=== PATIENT | male | born 1980 | race African-American/Black ===

== ENCOUNTER 2020-04-26 17:16 | Emergency (ER) | payer BC ==
[~2020-04-26] VITALS: Ht 177.8 cm; Wt 84.1 kg
[~2020-04-26 17:16] MED LIST: CEPHALEXIN500 M1 PO; HCTZ 25MG TAB25 MG PO; NO HOME MEDICATIONS; NORVASC2.5 MG PO; PERCOCET 325 MG1 TA2 PO
[2020-04-26 17:27] VITALS: TEMP 97
[2020-04-26 17:56] LABS: ALANINE AMINOTRANSFERASE 38 U/L (4-49); ALBUMIN 4.7 gm/dL (3.5-5.0); ALKALINE PHOSPHATASE 62 U/L (50-136); ANION GAP 12 mmol/L (7-16); AST,SGOT 36 U/L (15-37); BILIRUBIN,TOTAL 0.7 mg/dL (0.0-1.0); BLOOD UREA NITROGEN 15 mg/dL (9-20); CALCIUM 9.7 mg/dL (8.4-10.2); CARBON DIOXIDE 22 mmol/L (22-30); CHLORIDE 101 mmol/L (98-107); CREATININE, serum 1.03 (0.66-1.25); GLUCOSE 110 mg/dL (74-106); LIPASE 92 U/L (23-300); POTASSIUM 3.4 mmol/L (3.4-5.0); SODIUM 135 mmol/L (137-145); TOTAL PROTEIN 8.1 gm/dL (6.4-8.2)
[2020-04-26 17:58] LABS: BASO # 0.1 (0.0-0.2); C-REACTIVE PROTEIN < 0.5 mg/dL (0.0-0.9); EOS # 0.2 (0.0-0.7); EOS % 2.6 % (0-4.0); GRAN # 2.1 (1.4-6.5); GRAN % 35.1 % (42.2-75.2); HEMATOCRIT 43.7 % (42.0-52.0); HEMOGLOBIN 14.9 g/dl (13.5-18.0); LYMPH # 2.9 (1.2-3.4); LYMPH % 49.9 % (20.0-51.0); MEAN CELL VOLUME 96 fl (80.0-100.0); MEAN CORPUSCULAR HEMOGLOBIN 33 pg (27.0-31.0); MEAN CORPUSCULAR HGB CONC 34 g/dl (33.0-37.0); MEAN PLATELET VOLUME 11.1 fl (7.4-10.4); MONO # 0.7 (0.1-0.6); MONO % 11.1 % (1.7-9.3); PLATELET COUNT 342 K/mm3 (130-400); RED BLOOD COUNT 4.57 M/mm3 (4.20-5.60)
[2020-04-26] MEDS ORDERED: CARAFATE 1GM1 G PO (20:30)
[2020-04-26 21:35] VITALS: BP 180/133; PULSE 78
== END 2020-04-26 21:35 | disposition home or self-care (01) ==
LOC: COL.ER 17:16
PROVIDERS: Physician Assistant
DX: K52.9 Noninfective gastroenteritis and colitis, unspecified (principal); F17.210 Nicotine dependence, cigarettes, uncomplicated
CPT/HCPCS: J1170; J2405; J2550; J7030; Q9967

== ENCOUNTER 2022-05-03 04:19 | Observation (INO) | payer BC ==
[2022-05-03] VITALS (10 sets, daily range): BP systolic 129–154; BP diastolic 80–108; PULSE 72–94; TEMP 98.2–98.6
[~2022-05-03] VITALS: Ht 177.8 cm; Wt 85.0 kg
[~2022-05-03 04:19] MED LIST changes: +CARAFATE 1GM1 G PO; +MOTRIN 600600 MG/TAB PO; +NORCO 325 MG-51 TAB PO
[2022-05-03 04:46] LABS: BASO % 0.4 % (0.0-2.0); EOS # 0.1 K/mm3 (0.0-0.7); EOS % 1.6 % (0.0-4.0); GRAN # 5.2 K/mm3 (1.4-6.5); GRAN % 73.8 % (42.2-75.2); HEMATOCRIT 43.3 % (42.0-52.0); HEMOGLOBIN 14.1 g/dl (13.5-18.0); LYMPH # 1.3 K/mm3 (1.2-3.4); LYMPH % 18.5 % (20.0-51.0); MEAN CELL VOLUME 99 fl (80.0-100.0); MEAN CORPUSCULAR HEMOGLOBIN 32 pg (27-31); MEAN CORPUSCULAR HGB CONC 33 g/dl (33.0-37.0); MEAN PLATELET VOLUME 12.9 fl (7.4-10.4); MONO # 0.4 K/mm3 (0.1-0.6); MONO % 5.4 % (1.7-9.3); PLATELET COUNT 175 K/mm3 (130-400); RED BLOOD COUNT 4.38 M/mm3 (4.20-5.60)
[2022-05-03 04:58] LABS: ALBUMIN 3.7 gm/dL (3.5-5.0); BILIRUBIN,TOTAL 0.8 mg/dL (0.2-1.2); CALCIUM 9.6 mg/dL (8.4-10.2); CREATININE, serum 0.98 mg/dL (0.72-1.25); POTASSIUM 3.6 mmol/L (3.5-4.5); TOTAL PROTEIN 7.6 gm/dL (6.2-8.1)
[2022-05-03 05:04] LABS: TROPONIN-I 0.027 ng/mL (0.00-0.033)
[2022-05-03 12:00] LABS: HEMATOCRIT 42.5 % (42.0-52.0); HEMOGLOBIN 14.5 g/dl (13.5-18.0); MEAN CELL VOLUME 97 fl (80.0-100.0); MEAN CORPUSCULAR HEMOGLOBIN 33 pg (27-31); MEAN CORPUSCULAR HGB CONC 34 g/dl (33.0-37.0); MEAN PLATELET VOLUME 10.9 fl (7.4-10.4); RED BLOOD COUNT 4.39 M/mm3 (4.20-5.60); REDCELL DISTRIBUTION WIDTH-CV 13.8 % (11.5-14.5)
[2022-05-03 12:05] LABS: INR 1.1 (0.8-3.0); PROTHROMBIN TIME 13.1 SECONDS (9.7-12.8)
[2022-05-03 12:06] LABS: PLATELET COUNT 355 K/mm3 (130-400)
[2022-05-03 12:07] LABS: PARTIAL THROMBOPLASTIN TIME 29.2 SECONDS (26.0-37.0)
[2022-05-03 12:12] LABS: CALCIUM 9.8 mg/dL (8.4-10.2); CREATININE, serum 1.05 mg/dL (0.72-1.25); POTASSIUM 3.7 mmol/L (3.5-4.5)
--- NOTE | 2022-05-03 12:44 | NUR ---
SEE MERGE FOR ALL MEDICATION ADMINISTRATIONS, INTERVENTIONS, VITALS AND ETCO2
[2022-05-03 13:11] LABS: TRICYCLIC ANTIDEPRESS URINE NEGATIVE
--- NOTE | 2022-05-03 17:51 | NUR ---
PT RECOVERED FROM HEART CATH AT NOON TODAY. TR BAND RELEASED ORDERED, NO BLEEDING AT THIS TIME. PT EDUCATED TO NOT DROP HAMMER MECHANIC HEAVY ITEMS WITH HIS RIGHT ARM R/T EXIT SITE OF HEART CATH. HE VERBALZIED UNDERSTANDING.
--- NOTE | 2022-05-04 01:09 | NUR ---
Shift assessment done at 2029. Pt is A&O x4. Visitor at bedside at the time of assessment. R radial bandaid is CDI. No complains of chest pain, SOB, n/v, headache. LAC INT is CDI. Tele on. No needs or concerns expressed at this moment. Belongings and call light are within reach.
[2022-05-04 03:40] VITALS: BP 130/94; PULSE 69; TEMP 98.6
[2022-05-04 06:58] LABS: BASO % 1.2 % (0.0-2.0); EOS # 0.1 K/mm3 (0.0-0.7); EOS % 3.9 % (0.0-4.0); GRAN # 1.5 K/mm3 (1.4-6.5); GRAN % 45.6 % (42.2-75.2); HEMATOCRIT 44.5 % (42.0-52.0); HEMOGLOBIN 15.3 g/dl (13.5-18.0); LYMPH # 1.2 K/mm3 (1.2-3.4); LYMPH % 37.2 % (20.0-51.0); MEAN CELL VOLUME 94 fl (80.0-100.0); MEAN CORPUSCULAR HEMOGLOBIN 32 pg (27-31); MEAN CORPUSCULAR HGB CONC 34 g/dl (33.0-37.0); MEAN PLATELET VOLUME 10.8 fl (7.4-10.4); MONO # 0.4 K/mm3 (0.1-0.6); MONO % 11.8 % (1.7-9.3); PLATELET COUNT 347 K/mm3 (130-400); RED BLOOD COUNT 4.73 M/mm3 (4.20-5.60); REDCELL DISTRIBUTION WIDTH-CV 13.5 % (11.5-14.5)
[2022-05-04 07:06] VITALS: BP 128/97; PULSE 84; TEMP 97.6
[2022-05-04 07:21] LABS: CALCIUM 9.7 mg/dL (8.4-10.2); CREATININE, serum 1.01 mg/dL (0.72-1.25); MAGNESIUM 1.7 mg/dL (1.6-2.6); POTASSIUM 3.5 mmol/L (3.5-4.5)
--- NOTE | 2022-05-04 10:04 | NUR ---
Initial visit; Patient thanked Switch House Operator for stopping, though he was using the telephone. Switch House Operator offered God's blessings and a get well message and mentioned that he may contact Switch House Operator anytime if he would like another visit.
--- NOTE | 2022-05-04 10:43 | NUR ---
PT EDUCATED EARLY THIS AM ABOUT DIETARY CHANGES TO HELP WITH HIS HEART. PT VERBALIZED UNDERSTANDING BUT C/O NO WILL POWER. ENCOURAGED PATIENT TO MAKE SMALL CHANGES OVER TIME TO IMPROVE HIS HEALTH.
[2022-05-04 11:02] VITALS: BP 116/91; PULSE 86; TEMP 97.6
--- NOTE | 2022-05-04 13:22 | NUR ---
Reviewed education for chronic heart failure. Reviewed [facility] CHF educational booklet, with emphasis on daily weights, obtaining dry weights, monitoring for edema, shortness of breath, decreased endurance, or feeling full when eating less. Reviewed importance of medication compliance with all prescribed medications and when to call your medical provider (CHF Zones). Patient verbalized understanding. Patient's EF was 15-20% on 05/03/22 which does qualify for Cardiac Rehab. Referral to Cardiac Rehab would be welcomed by provider once the patient obtains a regular physician. Thank you.
[2022-05-04 15:32] VITALS: BP 111/75; PULSE 74; TEMP 97.8
--- NOTE | 2022-05-04 17:43 | NUR ---
PT IS ALERT AND ANSWERING QUESTIONS WITHOUT PROBLEM. RESP INCREASED TO 24, FENTANYL IV GIVEN ORDERED. WITHIN 10 MINUTES RESP ARE NOW 18.
[2022-05-04 20:02] VITALS: BP 122/97; PULSE 76; TEMP 97.8
--- NOTE | 2022-05-04 23:18 | NUR ---
Scheduled medications given. Shift assessment performed. VSS. Patient A&O. Patient denies any, discomfort, SOA, or further needs at this time. Call light in reach.
[2022-05-04 23:58] VITALS: BP 122/82; PULSE 65; TEMP 97.7
[2022-05-05 03:22] VITALS: BP 125/85; PULSE 68; TEMP 97.9
[2022-05-05 04:14] VITALS: BP 124/87; PULSE 70
[2022-05-05 04:46] LABS: EOS # 0.1 K/mm3 (0.0-0.7); EOS % 2.1 % (0.0-4.0); GRAN # 1.8 K/mm3 (1.4-6.5); GRAN % 41.8 % (42.2-75.2); HEMATOCRIT 47.5 % (42.0-52.0); HEMOGLOBIN 15.7 g/dl (13.5-18.0); LYMPH # 1.8 K/mm3 (1.2-3.4); LYMPH % 41.7 % (20.0-51.0); MEAN CELL VOLUME 97 fl (80.0-100.0); MEAN CORPUSCULAR HEMOGLOBIN 32 pg (27-31); MEAN CORPUSCULAR HGB CONC 33 g/dl (33.0-37.0); MEAN PLATELET VOLUME 11.5 fl (7.4-10.4); MONO # 0.5 K/mm3 (0.1-0.6); MONO % 12.9 % (1.7-9.3); PLATELET COUNT 317 K/mm3 (130-400); RED BLOOD COUNT 4.89 M/mm3 (4.20-5.60); REDCELL DISTRIBUTION WIDTH-CV 13.4 % (11.5-14.5)
--- NOTE | 2022-05-05 04:53 | NUR ---
Tele informed this RN that patient had a 7-8 sec run of VTACH. Stat EKG ordered per protocol. Vital signs taken, VSS. Patient did report a short "burst" of SOB that has since resolved. No chest pain reported. JAJA Waddell notified of patient status and subsequent orders were placed. wetlands technician called to draw STAT labs. Tray notified of developments. No further orders recieved.
[2022-05-05 05:06] LABS: CALCIUM 9.2 mg/dL (8.4-10.2); CHOLESTEROL RISK RATIO 3.1; CREATININE, serum 0.91 mg/dL (0.72-1.25); MAGNESIUM 1.7 mg/dL (1.6-2.6); POTASSIUM 3.9 mmol/L (3.5-4.5)
[2022-05-05 07:27] VITALS: BP 129/96; PULSE 75; TEMP 97.6
--- NOTE | 2022-05-05 08:00 | NUR ---
Patient is resting in bed, alert and oriented x 4, denies any shortness of breath or discomfort at this time. VSS, cooperative expecting to leave today.
[2022-05-05 11:22] VITALS: BP 119/92; PULSE 76; TEMP 97.9
--- NOTE | 2022-05-05 11:26 | NUR ---
(LATE ENTRY from 05/03) Patient seen at bedside to complete intake and discuss discharge justin. Patient reports that he lives at home alone in [place]. He is fully independent with his ADL's and IADL's. He has no DME or home oxygen needs. Patient does not have a PCP. States he used to see Dr. Sneed but was discharged as a patient due to missed appointments. Patient utilizes [facility] for prescriptions. Patient does not have a DPOA-HC and does not wish to create one. His emergency contact, Liza ([phone]) is his ex and together they share children and remain close friends. Patient is planning on returning home once medically ready. Discharge plan: home
[2022-05-05] MEDS ORDERED: LIPITOR 10MG10 MG PO (12:33)
[2022-05-05] MEDS ORDERED: TOPROL XL 50MG50 MG PO (12:33)
[2022-05-05] MEDS ORDERED: ALDACTONE 25MG25 M1 PO (12:34)
[2022-05-05] MEDS ORDERED: ENTRESTO 24 MG1 EACH PO (12:34)
[2022-05-05] MEDS ORDERED: LASIX 20MG TABL20 MG PO (12:34)
[2022-05-05] MEDS ORDERED: JARDIANCE10 PO (12:34)
[2022-05-05 15:35] VITALS: BP 112/82; PULSE 81; TEMP 97.7
--- NOTE | 2022-05-05 15:39 | NUR ---
brokerage purchase and sale clerk set up patient with Dr. Winters at [facility] for primary care. Market Research Assistant collaborated with Cardiology to obtain a Life Vest for patient. LUNA faxed clinicals, order sheet, and letter of medical necessity to Jonny at [facility]. Jonny submitted everything and is waiting on insurance authorization. Jonny will continue to work on securing the vest for patient. Vest will be available tonight vs tomorrow morning. LUNA updated Hospitalist and Physical Therapist Assistant.
--- NOTE | 2022-05-05 19:04 | NUR ---
Patient has been stable along the day, no complains of SOB, chest pain. Report given to welder 2nd shift nurse.
[2022-05-05 19:20] VITALS: BP 121/94; PULSE 74; TEMP 98
[2022-05-06 00:03] VITALS: BP 133/96; PULSE 74; TEMP 98.1
[2022-05-06 03:43] VITALS: BP 121/91; PULSE 68; TEMP 98.2
--- NOTE | 2022-05-06 07:02 | NUR ---
PT HAD UNEVENTFUL NIGHT. SLEPT THROUGH THE NIGHT, REPORT GIVEN TO GAGE COMBS.
[2022-05-06 08:20] VITALS: BP 118/83; PULSE 67; TEMP 97.8
--- NOTE | 2022-05-06 11:35 | NUR ---
Assessment complete. A&Ox4. Denies pain/nausea/shortness of breath. VS stable. Plan of care discussed for this shift to include meds/life vest/than DC home. Verbalizes understanding/denies questions/concerns. Call light in reach. Will monitor.
[2022-05-06 12:59] VITALS: BP 122/94; PULSE 79; TEMP 97.8
--- NOTE | 2022-05-06 13:15 | NUR ---
Life vest to be delivered to patient's room at 1600. SW notified RN and Hospitalist.
--- NOTE | 2022-05-06 15:35 | NUR ---
Lifevest staff here at this time.
--- NOTE | 2022-05-06 16:20 | NUR ---
Discharge instructions given both verbal and handwritten. Discussed f/u appt/home medications/diet/signs and symptoms to return to hospital. Verbalizes understanding. INT DCd to left AC-cath intact. Denies questions/concerns. Escorted off floor with PCT in stable condition.
== END 2022-05-06 16:45 | disposition home or self-care (01) ==
LOC: COL.ER 04:19 → MEDICAL 08:15
PROVIDERS: Personal Emergency Response Attendant; Physician Assistant; ADMIT Student in an Organized Health Care Education/Training Program
DX: I11.0 Hypertensive heart disease with heart failure (principal); I50.23 Acute on chronic systolic (congestive) heart failure; I42.8 Other cardiomyopathies; R06.02 Shortness of breath; T46.1X6A Underdosing of calcium-channel blockers, initial encounter; Z91.128 Patient's intentional underdosing of medication regimen for other reason; Y92.9 Unspecified place or not applicable; F12.90 Cannabis use, unspecified, uncomplicated; I08.1 Rheumatic disorders of both mitral and tricuspid valves; E78.5 Hyperlipidemia, unspecified; F17.210 Nicotine dependence, cigarettes, uncomplicated; R91.1 Solitary pulmonary nodule; Z28.310 Unvaccinated for COVID-19; Z28.9 Immunization not carried out for unspecified reason
CPT/HCPCS: A9270; C1769; C1887; G0378; J1644; J1650; J1940; J2250; J3010; J3475; Q9967

== ENCOUNTER 2023-01-22 15:13 | Observation (INO) | payer BC ==
[~2023-01-22] VITALS: Ht 180.3 cm; Wt 84.5 kg
[~2023-01-22 15:13] MED LIST changes: +ALDACTONE 25MG25 M1 PO; +ENTRESTO 24 MG1 EACH PO; +JARDIANCE10 PO; +LASIX 20MG TABL20 MG PO; +LIPITOR 10MG10 MG PO; +TOPROL XL 50MG50 MG PO
[2023-01-22 15:39] LABS: BASO # 0.1 K/mm3 (0.0-0.2); BASO % 0.9 % (0.0-2.0); EOS # 0.1 K/mm3 (0.0-0.7); EOS % 1.6 % (0.0-4.0); GRAN # 3.4 K/mm3 (1.4-6.5); GRAN % 53.3 % (42.2-75.2); HEMATOCRIT 48.7 % (42.0-52.0); HEMOGLOBIN 16.3 g/dl (13.5-18.0); LYMPH # 2.4 K/mm3 (1.2-3.4); LYMPH % 36.8 % (20.0-51.0); MEAN CELL VOLUME 100 fl (80.0-100.0); MEAN CORPUSCULAR HEMOGLOBIN 33 pg (27-31); MEAN CORPUSCULAR HGB CONC 34 g/dl (33.0-37.0); MEAN PLATELET VOLUME 11.8 fl (7.4-10.4); MONO # 0.5 K/mm3 (0.1-0.6); MONO % 7.1 % (1.7-9.3); PLATELET COUNT 345 K/mm3 (130-400); RED BLOOD COUNT 4.89 M/mm3 (4.20-5.60); REDCELL DISTRIBUTION WIDTH-CV 13.4 % (11.5-14.5)
[2023-01-22 15:45] LABS: INR 1.1 (0.8-3.0)
[2023-01-22 15:53] LABS: ALBUMIN 4.1 gm/dL (3.5-5.0); BILIRUBIN,TOTAL 0.7 mg/dL (0.2-1.2); CALCIUM 9.8 mg/dL (8.4-10.2); CREATININE, serum 1.03 mg/dL (0.72-1.25); MAGNESIUM 1.6 mg/dL (1.6-2.6); TOTAL PROTEIN 8.8 gm/dL (6.2-8.1)
[2023-01-22 16:03] LABS: TROPONIN-I 0.092 ng/mL (0.00-0.033)
[2023-01-22 19:57] VITALS: BP 139/107; PULSE 97; TEMP 98.2
[2023-01-22 20:24] VITALS: BP_SYST 145
--- NOTE | 2023-01-22 20:30 | NUR ---
Admitted to medical unit from ER with DX CHF exac, pt had some chest pain/tightness and SOB at home, pt denies chest pain at this time, no SOB, on RA, had 40 mg IV of Lasix in ER and voiding good amounts- states he feels better now,, Instructed to urinate in urinal so we can measure amounts out-- also informed we need a urine specimen,, Up in room, steady on feet- states has not had food in ER at all today-- will get a sandwich etc at this time.
[2023-01-22 22:00] VITALS: BP 145/87; PULSE 91; TEMP 98.2
--- NOTE | 2023-01-22 22:30 | NUR ---
Did talk to Jonny ELIZABETH regarding troponin result- He will put in an order to increase the pts Lovenox dose ,, also did talk about the pending metorolol order - siccinate vs titrate,, he states they can clarify that in the AM and since he got doses in ER we are good for tonight- informed hime of pts vitals 145/87,91/min
[2023-01-22 22:52] LABS: COLLECTION METHOD CLEAN CATCH
[2023-01-22 23:14] LABS: PH 5.5 (5.0-8.5); URINE APPEARANCE Clear (CLEAR/HAZY); URINE BLOOD Negative (NEGATIVE); URINE COLOR Yellow (YELLOW); URINE GLUCOSE 2+ (NEGATIVE); URINE KETONE Negative (NEGATIVE); URINE NITRATE Negative (NEGATIVE); URINE PROTEIN(semi-quant) Negative (NEGATIVE); URINE UROBILINOGEN 0.2 E.U/dL (0.2-1.0)
[2023-01-22 23:24] LABS: SQUAMOUS EPITHELIAL 0-2 /hpf (0-10); URINE RBC 0-2 /hpf (0-2)
[2023-01-22 23:27] VITALS: BP 141/102; PULSE 83; TEMP 97.6
[2023-01-22 23:30] LABS: TRICYCLIC ANTIDEPRESS URINE NEGATIVE
[2023-01-23] VITALS (18 sets, daily range): BP systolic 119–151; BP diastolic 60–109; PULSE 48–95; TEMP 97.5–99.2
--- NOTE | 2023-01-23 05:53 | NUR ---
Has not been able to sleep much due to lab draws/vitals etc, states he is feeling ok-- did state that he had chest discomfort earlier when up to bathroom but immediately went away-- has been on Tele SR-92/min. only scoring a 1 on ciwa scale due to intermittant "cold sweats" ,, VSS
[2023-01-23 06:15] LABS: BASO # 0.1 K/mm3 (0.0-0.2); BASO % 0.9 % (0.0-2.0); EOS # 0.2 K/mm3 (0.0-0.7); GRAN # 2.9 K/mm3 (1.4-6.5); GRAN % 50.6 % (42.2-75.2); HEMATOCRIT 48.4 % (42.0-52.0); HEMOGLOBIN 17.2 g/dl (13.5-18.0); LYMPH # 2.2 K/mm3 (1.2-3.4); LYMPH % 38.7 % (20.0-51.0); MEAN CORPUSCULAR HEMOGLOBIN 34 pg (27-31); MEAN CORPUSCULAR HGB CONC 36 g/dl (33.0-37.0); MONO # 0.4 K/mm3 (0.1-0.6); MONO % 6.5 % (1.7-9.3); PLATELET COUNT 381 K/mm3 (130-400); RED BLOOD COUNT 5.11 M/mm3 (4.20-5.60); REDCELL DISTRIBUTION WIDTH-CV 13.1 % (11.5-14.5)
[2023-01-23 06:18] LABS: MEAN CELL VOLUME 95 fl (80.0-100.0)
[2023-01-23 06:37] LABS: CALCIUM 9.3 mg/dL (8.4-10.2); CREATININE, serum 0.96 mg/dL (0.72-1.25); POTASSIUM 3.4 mmol/L (3.5-4.5)
--- NOTE | 2023-01-23 09:16 | NUR ---
Patient is resting in bed, states no SOB or chestpain, just couldnt sleep well this night. Telemetry in place, NSR. Assessment completed, meds provided. No further needs at this time. Call [facility] within reach.
[2023-01-23] MEDS ORDERED: ALDACTONE 25MG25 M1 PO ×2 (09:42→11:55)
[2023-01-23] MEDS ORDERED: LIPITOR20 MG PO (09:43)
[2023-01-23] MEDS ORDERED: ENTRESTO 49 MG1 EACH PO (09:44)
--- NOTE | 2023-01-23 11:13 | NUR ---
Initial visit: Projection Welding Machine Operator stopped by room on rounds. Pt was resting and content. Pt has no needs right now. Projection Welding Machine Operator will follow up as needed.
[2023-01-23] MEDS ORDERED: FOLIC ACID 11 MG/TA1 PO (11:52)
[2023-01-23] MEDS ORDERED: NATURE'S BLEND100 M2 PO (11:52)
[2023-01-23] MEDS ORDERED: CENTRUM SILVER1 CTB PO (11:55)
--- NOTE | 2023-01-23 17:13 | NUR ---
housekeeping worker met with patient to discuss discharge planning. Patient lives in [place] with his ex [id number]. Patient reports his ex- is still the best point of contact - Liza Mendes, . Patient's primary care physician is Dr. Elizabeth at [facility] and preferred pharmacy is [facility] in [place]. Patient is able to afford medications at this time. Patient would like to review DPOA-HC form and possibly appoint his son as his agent. housekeeping worker provided the DPOA-HC to review. Patient denied any DME and was independent with ADLS. Patient would like to return home at time of discharge. housekeeping worker was notified patient needs a life vest but Dr. Quinonez was out of the office and would be able to sign an order tomorrow. housekeeping worker faxed referral to [facility] Life Vest and expressed the order would be provided tomorrow after Dr. Quinonez is able to sign. Discharge Plan: Home
--- NOTE | 2023-01-23 20:00 | NUR ---
Assessment complete. A&Ox4. Denies pain/nausea/shortness of breath. VS stable. Currently on RA. Tele reporting SR. INT to left AC flushes without difficulty. Fluid restriction enforced. Not scoring on CIWA. Plan of care discussed for this shift to include meds/pain control/calling for questions/concerns. Verbalizes unerstanding. Call light in reach. Will monitor.
[2023-01-24] VITALS (10 sets, daily range): BP systolic 113–136; BP diastolic 74–92; PULSE 67–98; TEMP 97.5–98.2
--- NOTE | 2023-01-24 05:48 | NUR ---
Patient had an uneventful night. Denied pain/nausea/shortness of breath. VS remained stable. Currently on room air. TELE reporting SR. Scored 0 on CIWA. Denies current needs. Call light in reach. Will monitor.
[2023-01-24 07:58] LABS: CALCIUM 9.6 mg/dL (8.4-10.2); CREATININE, serum 1.24 mg/dL (0.72-1.25)
[2023-01-24 08:53] LABS: BASO # 0.1 K/mm3 (0.0-0.2); BASO % 0.9 % (0.0-2.0); EOS # 0.2 K/mm3 (0.0-0.7); EOS % 3.5 % (0.0-4.0); GRAN # 2.2 K/mm3 (1.4-6.5); GRAN % 41.1 % (42.2-75.2); HEMATOCRIT 51.5 % (42.0-52.0); HEMOGLOBIN 17.9 g/dl (13.5-18.0); LYMPH # 2.3 K/mm3 (1.2-3.4); LYMPH % 42.6 % (20.0-51.0); MEAN CELL VOLUME 96 fl (80.0-100.0); MEAN CORPUSCULAR HEMOGLOBIN 33 pg (27-31); MEAN CORPUSCULAR HGB CONC 35 g/dl (33.0-37.0); MEAN PLATELET VOLUME 11.3 fl (7.4-10.4); MONO # 0.6 K/mm3 (0.1-0.6); MONO % 11.3 % (1.7-9.3); PLATELET COUNT 379 K/mm3 (130-400); RED BLOOD COUNT 5.39 M/mm3 (4.20-5.60); REDCELL DISTRIBUTION WIDTH-CV 13.2 % (11.5-14.5)
--- NOTE | 2023-01-24 15:24 | NUR ---
transportation maintenance worker faxed referral and medical order for life vest to Luke at [facility]. transportation maintenance worker was notified patient is a second use patient and it is unknown if patient will be able have a life vest re-issued to him but Luke will follow up with the LUNA. LUNA notified cardiology that it may take time for patient to be approved for the life vest. SW was notified it may take 24 hours to know if patient is approved to be re-issued a life vest. transportation maintenance worker was contacted by patient's nurse that patient expressed he needs to leave the hospital to strip picker his daughter from school and does not have anyone else to pick her up. LUNA contacted cardiology whom expressed Dr Haas would be able to determine if he could discharge without the life vest. LUNA contacted Dr. Haas whom will speak with cardiology on recommendations. Dr Haas contacted LUNA and expressed patient could discharge without the life vest if it would be able to be mailed to his residence. LUNA met with patient to confirm address. Patient confirmed address is [address] [place] [address]. Patient also requested to complete a DPOA-HC with nursing home social worker. SW assisted patient with completing the form, patient signed and nurse and nursing home social worker witnessed signature. LUNA made copies, placed a copy in the chart and provided original and 4 copies to patient. LUNA notified Luke at [facility] Life Vest that patient will be discharging but can have the life vest mailed to his residence if he is eligible for a reissue. Discharge Plan: Home
== END 2023-01-24 14:45 | disposition home or self-care (01) ==
LOC: COL.ER 15:13 → MEDICAL 16:33
PROVIDERS: Emergency Medicine; ADMIT Internal Medicine
DX: I21.4 Non-ST elevation (NSTEMI) myocardial infarction (principal); I42.8 Other cardiomyopathies; I11.0 Hypertensive heart disease with heart failure; I50.23 Acute on chronic systolic (congestive) heart failure; E87.6 Hypokalemia; M72.4 Pseudosarcomatous fibromatosis; E78.5 Hyperlipidemia, unspecified; I16.0 Hypertensive urgency; R77.8 Other specified abnormalities of plasma proteins; F10.120 Alcohol abuse with intoxication, uncomplicated; F19.90 Other psychoactive substance use, unspecified, uncomplicated; F12.90 Cannabis use, unspecified, uncomplicated; Y90.9 Presence of alcohol in blood, level not specified; Z87.891 Personal history of nicotine dependence
CPT/HCPCS: A9270; G0378; J1650; J1940

== ENCOUNTER 2023-06-13 16:37 | Inpatient (IN) | payer BC, OTHER ==
[~2023-06-13] VITALS: Ht 177.8 cm; Wt 83.3 kg
[~2023-06-13 16:37] MED LIST changes: +CENTRUM SILVER1 CTB PO; +ENTRESTO 49 MG1 EACH PO; +FOLIC ACID 11 MG/TA1 PO; +K-TAB20 PO; +LIPITOR20 MG PO; +NATURE'S BLEND100 M2 PO; +NITROSTAT0.4 MG/TAB SL
[2023-06-13 17:06] LABS: BASO % 0.7 % (0.0-2.0); EOS # 0.1 K/mm3 (0.0-0.7); EOS % 2.2 % (0.0-4.0); GRAN # 2.2 K/mm3 (1.4-6.5); GRAN % 48.8 % (42.2-75.2); HEMATOCRIT 44.1 % (42.0-52.0); HEMOGLOBIN 14.9 g/dl (13.5-18.0); LYMPH # 1.6 K/mm3 (1.2-3.4); LYMPH % 34.4 % (20.0-51.0); MEAN CELL VOLUME 99 fl (80.0-100.0); MEAN CORPUSCULAR HEMOGLOBIN 33 pg (27-31); MEAN CORPUSCULAR HGB CONC 34 g/dl (33.0-37.0); MEAN PLATELET VOLUME 12.5 fl (7.4-10.4); MONO # 0.6 K/mm3 (0.1-0.6); MONO % 13.7 % (1.7-9.3); PLATELET COUNT 211 K/mm3 (130-400); RED BLOOD COUNT 4.46 M/mm3 (4.20-5.60); REDCELL DISTRIBUTION WIDTH-CV 13.7 % (11.5-14.5)
[2023-06-13 17:15] LABS: INR 1.1 (0.8-3.0); PROTHROMBIN TIME 11.6 SECONDS (9.7-12.8)
[2023-06-13 17:17] LABS: PARTIAL THROMBOPLASTIN TIME 17.4 SECONDS (26.0-37.0)
[2023-06-13 17:21] LABS: ALBUMIN 3.9 gm/dL (3.5-5.0); BILIRUBIN,TOTAL 0.6 mg/dL (0.2-1.2); CALCIUM 9.7 mg/dL (8.4-10.2); CREATININE, serum 1.42 mg/dL (0.72-1.25); MAGNESIUM 1.6 mg/dL (1.6-2.6); POTASSIUM 3.6 mmol/L (3.5-4.5); TOTAL PROTEIN 7.3 gm/dL (6.2-8.1)
[2023-06-13 17:35] LABS: TROPONIN-I 0.103 ng/mL (0.00-0.033)
[2023-06-13] MEDS ORDERED: Heparin 5,000 UNITS/ML 1 ML VIAL SQ SCH (17:54)
[2023-06-13] MEDS ORDERED: *Potassium Replacement Protocol MC SCH (18:00)
[2023-06-13] MEDS ORDERED: Potassium Bicarbonate/Citrate 20 MEQ Effervescent TAB PO SCH (18:00)
--- NOTE | 2023-06-13 20:17 | NUR ---
Patient arrived to medical unit from ER at approximately 1945. Alert and oriented x 4, and able to make needs known. Denies having pain and discomfort. Peripheral INT to left AC. Denies SOB and dyspnea. LS CTA. HRR. Telemetry in place. BSAx4. No edema. Has some slurred speech, but easily understandable, mild facial drooping. Patient was drinking and taking pills in ER. Passed bedside swallow study with this nurse. Voices no questions, needs, or concerns at this time. In bed with call light within reach.
[2023-06-13 20:31] VITALS: BP 137/97; PULSE 72; TEMP 97.9
[2023-06-13 21:35] VITALS: BP_SYST 137
[2023-06-13] MEDS ORDERED: Atorvastatin 20 MG TAB PO SCH (21:47)
--- NOTE | 2023-06-13 22:03 | NUR ---
Troponin called to GUZMAN Ayala. No new orders at this time.
[2023-06-13 22:06] LABS: COLLECTION METHOD CLEAN CATCH
[2023-06-13 22:14] LABS: URINE APPEARANCE CLEAR (CLEAR/HAZY); URINE BLOOD NEGATIVE (NEGATIVE); URINE COLOR YELLOW (YELLOW); URINE GLUCOSE 3+ (NEGATIVE); URINE KETONE TRACE (NEGATIVE); URINE NITRATE NEGATIVE (NEGATIVE); URINE PROTEIN(semi-quant) TRACE (NEGATIVE)
[2023-06-13] MEDS ORDERED: NS 1,000 ML IV SCH (22:15)
[2023-06-13] MEDS ORDERED: JARDIANCE10 PO (22:51)
[2023-06-13 22:52] LABS: ALCOHOL(ethanol),MEDICAL < 10 mg/dL (0-10); CREATINE KINASE 508 U/L (30-200)
[2023-06-13 22:54] LABS: TRICYCLIC ANTIDEPRESS URINE NEGATIVE (NEGATIVE)
[2023-06-13 23:48] VITALS: BP 98/64; PULSE 66; TEMP 98.7
[2023-06-14 01:02] VITALS: BP_SYST 98
--- NOTE | 2023-06-14 02:00 | NUR ---
Troponin called to GUZMAN Waddell.
[2023-06-14] MEDS ORDERED: Melatonin 3 MG TAB PO PRN (02:30)
[2023-06-14 03:59] VITALS: BP 117/82; PULSE 67; TEMP 97.8
[2023-06-14 04:41] VITALS: BP_SYST 117
--- NOTE | 2023-06-14 07:00 | NUR ---
PT RESTING IN BED WATCHING TV. PT IS RA. PT IS SR ON TELE. PT HAS CALL LIGHT AND INSTRUCTED TO CALL WIHT ALL NEEDS.
[2023-06-14 07:16] VITALS: BP 125/88; PULSE 66; TEMP 97.8
[2023-06-14] MEDS ORDERED: Spironolactone 25 MG TAB PO SCH (08:00)
[2023-06-14 08:19] LABS: CALCIUM 9.2 mg/dL (8.4-10.2); CREATININE, serum 1.12 mg/dL (0.72-1.25); POTASSIUM 3.7 mmol/L (3.5-4.5)
[2023-06-14] MEDS ORDERED: Aspirin 325 MG TAB PO SCH (09:00)
[2023-06-14 09:06] VITALS: BP_SYST 125
[2023-06-14 11:11] VITALS: BP 128/91; PULSE 80; TEMP 97.5
--- NOTE | 2023-06-14 12:24 | NUR ---
workers' compensation hearings officer met with patient and he reports he has to go home at 1:30pm due to movers coming. Pt reports he lives alone in [place]. He sees Dr. Thompson and obtains medications from [facility] with no difficulties. He is independent with ADLS and uses no DME. He confirmed his DPOA-HC on file is his son, Teetee. He reports "BJ" Young [phone] as his contact. Pt intends to return home today. OT reports home with no concerns. Discharge Plan: Home
[2023-06-14] MEDS ORDERED: LIPITOR20 MG PO (12:41)
[2023-06-14] MEDS ORDERED: ASPIRIN E.C. 8181 MG PO (12:42)
[2023-06-14] MEDS ORDERED: ELIQUIS 5MG PO (12:43)
--- NOTE | 2023-06-14 12:54 | NUR ---
ATTEMPTED TO MAKE PTS CARDIOLOGY APPOINTMENT BUT NO ANSWER. MESSAGE LEFT
--- NOTE | 2023-06-14 13:21 | NUR ---
DISCHARGE INSTRUCTIONS DISCUSSED WITH PT. INSTRUCTED PT THAT CARDIOLOGY WILL CALL HIM TO SE UP FOLLOW UP. PT'S PCP WILL SCHEDULE HIS MRI AND ULTRASOUND. ALL QUESTIONS ANSWERED. PT ACCOMPAINED OUT FOR DISCHARGE BY CH[employer].
--- NOTE | 2023-06-14 13:51 | NUR ---
Initial visit; Patient thanked Fitness Coach for looking in on her. He had a smile when Fitness Coach wished him well and said she would like to keep him in her prayrers. He said that was "good."
== END 2023-06-14 13:26 | disposition home or self-care (01) | DRG 64 ==
LOC: COL.ER 16:37 → MEDICAL 17:49
PROVIDERS: Internal Medicine; Nurse Practitioner Family; ADMIT Internal Medicine
DX: I63.9 Cerebral infarction, unspecified (principal); I21.A1 Myocardial infarction type 2; I42.8 Other cardiomyopathies; N17.9 Acute kidney failure, unspecified; I50.22 Chronic systolic (congestive) heart failure; R29.810 Facial weakness; I25.10 Atherosclerotic heart disease of native coronary artery without angina pectoris; E83.42 Hypomagnesemia; E87.6 Hypokalemia; I34.0 Nonrheumatic mitral (valve) insufficiency; R47.81 Slurred speech; R29.702 NIHSS score 2; I11.0 Hypertensive heart disease with heart failure; Z79.899 Other long term (current) drug therapy; Z87.891 Personal history of nicotine dependence
CPT/HCPCS: J1644; J3475

== ENCOUNTER 2023-11-19 01:03 | Emergency (ER) | payer OTHER ==
[~2023-11-19] VITALS: Ht 177.8 cm; Wt 84.1 kg
[~2023-11-19 01:03] MED LIST changes: +ASPIRIN E.C. 8181 MG PO; +ELIQUIS 5MG PO
[2023-11-19 01:12] VITALS: TEMP 97.8
[2023-11-19] MEDS ORDERED: Albuterol/Ipratropium 3 MG-0.5 MG/3 ML Neb Soln IH ONE (01:30)
[2023-11-19] MEDS ORDERED: hydrALAZINE 20 MG/ML 1 ML VIAL IV ONE (01:30)
[2023-11-19 01:52] LABS: PROTHROMBIN TIME 10.9 SECONDS (9.7-12.8)
[2023-11-19 01:54] LABS: PARTIAL THROMBOPLASTIN TIME 20.8 SECONDS (26.0-37.0)
[2023-11-19 02:00] LABS: ALBUMIN 3.7 g/dL (3.5-5.0); BILIRUBIN,TOTAL 0.7 mg/dL (0.2-1.2); CALCIUM 9.5 mg/dL (8.4-10.2); CREATININE, serum 0.92 mg/dL (0.72-1.25); POTASSIUM 3.9 mEq/L (3.5-4.5); TOTAL PROTEIN 6.8 g/dl (6.2-8.1)
[2023-11-19 02:16] LABS: TROPONIN-I 0.34 ng/mL (0.00-0.033)
[2023-11-19] MEDS ORDERED: Heparin 5,000 UNITS/ML 1 ML VIAL IV ONE (02:30)
[2023-11-19] MEDS ORDERED: Heparin 5,000 UNITS/ML 1 ML VIAL IV PRN (02:30)
[2023-11-19] MEDS ORDERED: Heparin/D5W 250 ML IV SCH (02:30)
[2023-11-19 02:36] LABS: BASO # 0.1 K/mm3 (0.0-0.2); BASO % 0.7 % (0.0-2.0); EOS # 0.1 K/mm3 (0.0-0.7); EOS % 1.9 % (0.0-4.0); GRAN % 66.7 % (42.2-75.2); HEMATOCRIT 41.3 % (42.0-52.0); HEMOGLOBIN 13.7 g/dl (13.5-18.0); LYMPH # 1.8 K/mm3 (1.2-3.4); LYMPH % 24.5 % (20.0-51.0); MEAN CELL VOLUME 101 fl (80.0-100.0); MEAN CORPUSCULAR HEMOGLOBIN 33 pg (27-31); MEAN CORPUSCULAR HGB CONC 33 g/dl (33.0-37.0); MEAN PLATELET VOLUME 11.7 fl (7.4-10.4); MONO # 0.4 K/mm3 (0.1-0.6); MONO % 5.8 % (1.7-9.3); PLATELET COUNT 274 K/mm3 (130-400); RED BLOOD COUNT 4.11 M/mm3 (4.20-5.60)
[2023-11-19 02:42] LABS: ALCOHOL(ethanol),MEDICAL < 10 mg/dL (0-10); LIPASE 27 U/L (8-78)
[2023-11-19 02:43] LABS: COLLECTION METHOD CLEAN CATCH
[2023-11-19] MEDS ORDERED: Nitroglycerin/D5W 250 ML IV ONE (02:45)
[2023-11-19] MEDS ORDERED: Carvedilol 6.25 MG TAB PO ONE (03:00)
[2023-11-19 03:08] LABS: TRICYCLIC ANTIDEPRESS URINE NEGATIVE (NEGATIVE)
[2023-11-19 03:12] LABS: URINE APPEARANCE Clear (CLEAR/HAZY); URINE COLOR YELLOW (YELLOW)
[2023-11-19 03:13] LABS: URINE BLOOD Negative (NEGATIVE); URINE GLUCOSE Negative (NEGATIVE); URINE KETONE Negative (NEGATIVE); URINE NITRATE Negative (NEGATIVE); URINE PROTEIN(semi-quant) Negative (BEGATIVE); URINE UROBILINOGEN 0.2 E.U/dL (0.2-1.0)
[2023-11-19] MEDS ORDERED: Magnesium Sulfate 4% 50 ML IV ONE (04:15)
[2023-11-19 05:19] VITALS: BP 129/86; PULSE 98
== END 2023-11-19 05:20 | disposition short-term general hospital (02) ==
LOC: COL.ER 01:03
PROVIDERS: Emergency Medicine; Nurse Practitioner
DX: I21.4 Non-ST elevation (NSTEMI) myocardial infarction (principal); I11.0 Hypertensive heart disease with heart failure; I50.9 Heart failure, unspecified; F17.200 Nicotine dependence, unspecified, uncomplicated
CPT/HCPCS: J1644; J2305; J3475